=== PATIENT | male | born 1970 | race African-American/Black ===

== ENCOUNTER 2017-02-18 12:31 | Emergency (ER) | payer BC, OTHER ==
[~2017-02-18] VITALS: Ht 165.1 cm; Wt 81.6 kg
[2017-02-18 12:59] VITALS: BP 169/81
== END 2017-02-18 14:20 | disposition home or self-care (01) ==
LOC: ER 12:42 → EEVIPCON 12:42 → ER 14:20
DX: S00.81XA Abrasion of other part of head, initial encounter (principal); Y08.89XA Assault by other specified means, initial encounter; Y93.89 Activity, other specified; Y99.8 Other external cause status; Y92.89 Other specified places as the place of occurrence of the external cause
CPT/HCPCS: 70450; 73600

== ENCOUNTER 2017-02-22 07:42 | Emergency (ER) | payer BC, OTHER ==
[~2017-02-22] VITALS: Ht 165.1 cm; Wt 86.2 kg
[2017-02-22] MEDS ORDERED: KETOROLAC TROMETH 60MG/2ML VIAL IM ONE (08:45)
[2017-02-22 10:22] VITALS: BP 130/80
== END 2017-02-22 10:22 | disposition home or self-care (01) ==
LOC: ER 07:42
DX: S05.11XA Contusion of eyeball and orbital tissues, right eye, initial encounter (principal); S09.90XA Unspecified injury of head, initial encounter; Y08.89XA Assault by other specified means, initial encounter; Y93.89 Activity, other specified; Y99.8 Other external cause status; Y92.89 Other specified places as the place of occurrence of the external cause
CPT/HCPCS: 70450; 70486; 96372; 99284; J1885

== ENCOUNTER 2019-11-23 14:34 | Emergency (ER) | payer BC, OTHER ==
[~2019-11-23] VITALS: Ht 165.1 cm; Wt 86.2 kg
[2019-11-23 14:45] VITALS: BP 155/83
[2019-11-23 16:19] LABS: Urine Bacteria NONE SEEN /hpf (None Seen); Urine Blood Negative /uL (Negative); Urine Mucus FEW (None Seen); Urine Specific Gravity 1.028 (1.001-1.035); Urine WBC 1 /hpf (0 - 3)
[2019-11-23 16:22] LABS: Amphetamine Screen, Urine NEGATIVE (NEGATIVE); Barbiturate Scree,Urine NEGATIVE (NEGATIVE); Benzodiazephine Screen, Urine NEGATIVE (NEGATIVE); Cannabinoid Screen, Urine NEGATIVE (NEGATIVE); Cocaine Screen, Urine NEGATIVE (NEGATIVE); Opiate Scree,Urine NEGATIVE (NEGATIVE); Phencyclidine Screen, Urine NEGATIVE (NEGATIVE)
== END 2019-11-23 16:23 | disposition left against medical advice (07) ==
LOC: ER 14:34
DX: R07.89 Other chest pain (principal); R11.0 Nausea; Z53.21 Procedure and treatment not carried out due to patient leaving prior to being seen by health care provider
CPT/HCPCS: 80307; 81001; 93005